=== PATIENT | female | born 1995 | race Hispanic/Latino ===

== ENCOUNTER 2018-11-08 10:42 | Emergency (ER) | payer OTHER ==
--- OUTSIDE RECORDS SUMMARY | 2018-11-08 10:46 | XMS REPORT ---
:1995 [facility] [address] [place] [address] Dr. Valderrama. [address] [place] [address] Care Team Providers Name Role Phone Unavailable Unavailable Unavailable Problems This patient has no known problems. Allergies, Adverse Reactions, Alerts This patient has no known allergies or adverse reactions. Medications This patient has no known medications.
[2018-11-08 11:23] LABS: Absolute Lymphocytes (CBC) 2.2 K/uL (0.7-4.9); Absolute Monocytes 0.6 K/uL (0.1-1.3); Absolute Neutrophil 10.2 K/uL (1.8-8.0); Basophils % 0.3 % (0-1.3); Eosinophils % 0.8 % (0-4.4); Hematocrit 36.5 % (36.0-45.0); MPV 10.3 fL (7.6-11.3); Monocytes % 4.9 % (3.3-12.3)
[2018-11-08 11:25] LABS: Urine Blood 2+ (NEG); Urine Glucose NEGATIVE (NEG); Urine Protein TRACE (NEG); Urine pH 7.5 (5.0-7.0)
[2018-11-08] MEDS ORDERED: NA CHLORIDE 0.9% 1,000 ML ONE (11:27)
[2018-11-08 12:02] LABS: BUN Blood Urea Nitrogen 7 mg/dL (7-18); Bicarbonate 23 mmol/L (21-32); Glucose Level 80 mg/dL (74-106); HCG, Quantitative 32694 mIU/mL (1-3); Potassium 3.6 mmol/L (3.5-5.1); Sodium Level 135 mmol/L (136-145)
--- NOTE | 2018-11-08 12:28 | RAD REPORT ---
EXAM DESCRIPTION: US - 1St Trimest Single 1St Fetus - 11/08/2018 11:52 am CLINICAL HISTORY: , vaginal bleeding COMPARISON: None. FINDINGS: A single variably gestation is identified. The 4 chamber heart view has a normal appearanc e. Heart rate normal. The intracranial contents and spine are grossly normal. Intra-abdominal s tructures also grossly normal. Anatomic assessment is limited at this age. Anatomy is as expected for 15 week age. measurements are as follows: BPD:2.98 Centimeters 15 weeks 3 days HC:10.73 Centimeters 15 weeks 1 day AC:9.18 Centimeters 15 weeks 2 days HL:1.85 Centimeters 15 weeks 3 days FL:1.52 Centimeters 14 weeks 3 days The estimated gestational age (EGA) is 15 weeks 1 day with an YEIMI of 05/01/2019. ratios are no rmal or within acceptable limits. The placenta is grade 0, anterior in location. Placenta is low lyin g with the inferior margin 10 mm from the internal os. No abruption or marginal hematoma. Cervical ca nal is 3.5 cm with closed internal os. The amniotic fluid volume is normal. No maternal adnexal abnormality. IMPRESSION: 1. Single gestation with an EGA of 15 weeks 1 day and an YEIMI of the 05/01/2019. Normal heart rate seen. 2. Anatomic assessment is limited at this age. Anatomy is as expected for a 15 week gestational age. 3. Grade 0, anterior placenta with low-lying placenta. No abruption or marginal hematoma. Cervical ca nal is 3.5 cm with closed internal os. 4. Amniotic fluid volume is normal.
--- NOTE | 2018-11-08 12:43 | RAD REPORT ---
EXAM DESCRIPTION: US - TRANSVAG OB CERVIX ASSESSMENT - 11/08/2018 12:36 pm CLINICAL HISTORY: CX Vaginal bleeding, early . COMPARISON: 1St Trimest Single 1St Fetus dated 11/08/2018 FINDINGS: Transvaginal empty bladder sonography was performed to assess the placental edge and cervi x. The cervix is 4 cm and closed. The edge of the placenta is approximately 1.5-2 cm from the internal o s. Please refer to recently performed pelvic ultrasound for details on the gestation.
--- NOTE | 2018-11-08 12:51 | ER ---
Nurse's Notes [facility] Name: Tegan Robbins Age: 23 yrs Sex: Female : 1995 Arrival Date: 11/08/2018 Time: 10:48 Bed 17 Private MD: Diagnosis: Threatened Presentation: 11/08 10:49 Presenting complaint: Patient states: yesterday morning I woke up and had light pink ch discharge. this morning I had light pink discharge, I called my OBGYN and they said that they cannot fix it, if I start bleeding to go to the ER. 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 Transition of care: patient was not received from another setting of care. Onset of symptoms was November 08, 2018 at 10:20. Risk Assessment: Do you want to hurt yourself or someone else? Patient reports no desire to harm self or others. Initial Sepsis Screen: Does the patient meet any 2 criteria? No. Patient's initial sepsis screen is negative. Does the patient have a suspected source of infection? No. Patient's initial sepsis screen is negative. Care prior to arrival: None. 10:49 Method Of Arrival: Ambulatory 10:49 Acuity: SAMINA 3 ch Triage Assessment: 10:51 General: Appears in no apparent distress. comfortable, Behavior is calm, cooperative, ch appropriate for age. Pain: Denies pain. : Reports vaginal bleeding that is bright red, light flow. : Reports pain pt reports pressure in stomach. 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 - Social history:: Smoking status: Patient/guardian denies using tobacco, Patient/guardian denies using alcohol, street drugs. - Ebola Screening: : Patient negative for fever greater than or equal to 101.5 degrees Fahrenheit, and additional compatible Ebola Virus Disease symptoms Patient denies exposure to infectious person Patient denies travel to an Ebola-affected area in the 21 days before illness onset No symptoms or risks identified at this time. Screenin:56 Abuse screen: Denies threats or abuse. Denies injuries from another. Nutritional sv screening: No deficits noted. Tuberculosis screening: No symptoms or risk factors identified. Fall Risk None identified. Assessment: 11:09 General: Appears in no apparent distress. comfortable, well developed, Behavior is sv calm, cooperative, appropriate for age. Pain: Denies pain. Neuro: Level of Consciousness is awake, alert, obeys commands, Oriented to person, place, time, situation, Moves all extremities. Full function Gait is steady, Speech is normal. Respiratory: Respiratory effort is even, unlabored, Respiratory pattern is regular, symmetrical. : Reports vaginal bleeding that is bright red, spotty, since yesterday. Pt reports yesterday it was light pink and today it started getting bright red. Pt denies having recent sexual intercourse. Derm: Skin is pink, warm \T\ dry. 12:13 Reassessment: Patient appears in no apparent distress at this time. No changes from sv previously documented assessment. Patient and/or family updated on plan of care and expected duration. Pain level reassessed. Patient is alert, oriented x 3, equal unlabored respirations, skin warm/dry/pink. 12:40 Reassessment: Patient appears in no apparent distress at this time. No changes from sv previously documented assessment. Patient and/or family updated on plan of care and expected duration. Pain level reassessed. Patient is alert, oriented x 3, equal unlabored respirations, skin warm/dry/pink. Pt back from US. 13:03 Reassessment: Patient appears in no apparent distress at this time. No changes from sv previously documented assessment. Patient and/or family updated on plan of care and expected duration. Pain level reassessed. Patient is alert, oriented x 3, equal unlabored respirations, skin warm/dry/pink. Vital Signs: 10:51 BP 126 / 80; Pulse 88; Resp 16; Temp 98.4; Pulse Ox 100% on R/A; Weight 89.81 kg; ch Height 5 ft. 3 in. (160.02 cm); Pain 0/10; 12:11 BP 96 / 60; Pulse 64; Resp 18; Pulse Ox 100% ; sv 13:03 BP 101 / 62; Pulse 66; Resp 16; Pulse Ox 99% ; sv 10:51 Body Mass Index 35.07 (89.81 kg, 160.02 cm) ED Course: 10:48 Patient arrived in ED. mr 10:50 Triage completed. 10:51 Arm band placed on right wrist. Patient placed in an exam room, on a stretcher. 10:55 Fortino Vivas MD is Attending Physician. [facility] 10:55 Sherry Obrien, RN is Primary Nurse. sv 10:56 Patient has correct armband on for positive identification. Placed in gown. Bed in low sv position. Call light in reach. Door closed. Head of bed elevated. 11:09 Initial lab(s) drawn, by sc, sent to lab. Inserted saline lock: 20 gauge in right sv antecubital area, using aseptic technique. Blood collected. Flushed right antecubital with 5 ml normal saline. 11:16 Urine collected: clean catch specimen, clear. mh5 11:52 1St Trimest Single 1St Fetus In Process Unspecified. EDMS 12:09 Ultrasound completed. Patient moved back from ultrasound. aa4 12:09 Note: RAD WANTS MORE US PICS - PT TO RETURN TO US. aa4 12:13 ED physician to see patient. sv 12:37 TRANSVAG OB CERVIX ASSESSMENT In Process Unspecified. EDMS 12:50 Alejandro Bridges MD is Referral Physician. [facility] 13:03 No provider procedures requiring assistance completed. IV discontinued, intact, sv bleeding controlled, No redness/swelling at site. Pressure dressing applied. Administered Medications: 11:19 Drug: NS 0.9% 1000 ml Route: IV; Rate: 1 bolus; Site: right antecubital; sv 12:15 Follow up: Response: No adverse reaction; IV Status: Completed infusion; IV Intake: sv 1000ml Intake: 12:15 IV: 1000ml; Total: 1000ml. sv Outcome: 12:50 Discharge ordered by . renetta 13:04 Discharged to home ambulatory, with family. sv 13:04 Condition: stable 13:04 Discharge instructions given to patient, Instructed on discharge instructions, follow up and referral plans. medication usage, Demonstrated understanding of instructions, follow-up care, medications, Prescriptions given X 1. 13:04 Patient left the ED. sv Signatures: Dispatcher [employer] EDMS Flori Grajeda RN RN Sherry Obrien RN RN sv Anderson, Corey, MD MD cha Jesus, Heidi mr Jordan, Zaira [facility] Gerald, Bernice [facility]
--- NOTE | 2018-11-08 12:51 | EDPHYS ---
Physician Documentation [facility] Name: Tegan Robbins Age: 23 yrs Sex: Female : 1995 Arrival Date: 11/08/2018 Time: 10:48 Bed 17 Private MD: ED Physician Fortino Vivas HPI: 11/08 11:43 This 23 yrs old Female presents to ER via Ambulatory with complaints of renetta Vaginal Bleeding, 15 wks . 11:43 The patient presents with vaginal bleeding that is light. Onset: The symptoms/episode renetta began/occurred just prior to arrival, this morning. Modifying factors: The symptoms are alleviated by nothing, the symptoms are aggravated by nothing. Severity of symptoms: At their worst the symptoms were mild, in the emergency department the symptoms are unchanged. 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 - Social history:: Smoking status: Patient/guardian denies using tobacco, Patient/guardian denies using alcohol, street drugs. - Ebola Screening: : Patient negative for fever greater than or equal to 101.5 degrees Fahrenheit, and additional compatible Ebola Virus Disease symptoms Patient denies exposure to infectious person Patient denies travel to an Ebola-affected area in the 21 days before illness onset No symptoms or risks identified at this time. ROS: 11:45 Constitutional: Negative for fever, chills, and weight loss, Eyes: Negative for injury, renetta pain, redness, and discharge, ENT: Negative for injury, pain, and discharge, Neck: Negative for injury, pain, and swelling, Cardiovascular: Negative for chest pain, palpitations, and edema, Respiratory: Negative for shortness of breath, cough, wheezing, and pleuritic chest pain, Abdomen/GI: Negative for abdominal pain, nausea, vomiting, diarrhea, and constipation, Back: Negative for injury and pain, MS/Extremity: Negative for injury and deformity, Skin: Negative for injury, rash, and discoloration, Neuro: Negative for headache, weakness, numbness, tingling, and seizure, Psych: Negative for depression, anxiety, suicide ideation, homicidal ideation, and hallucinations, Allergy/Immunology: Negative for hives, rash, and allergies, Endocrine: Negative for neck swelling, polydipsia, polyuria, polyphagia, and marked weight changes, Hematologic/Lymphatic: Negative for swollen nodes, abnormal bleeding, and unusual bruising. 11:45 : Positive for vaginal bleeding. 11:46 : Positive for renetta Exam: 11:45 Constitutional: This is a well developed, well nourished patient who is awake, alert, renetta and in no acute distress. Head/Face: Normocephalic, atraumatic. Eyes: Pupils equal round and reactive to light, extra-ocular motions intact. Lids and lashes normal. Conjunctiva and sclera are non-icteric and not injected. Cornea within normal limits. Periorbital areas with no swelling, redness, or edema. ENT: Nares patent. No nasal discharge, no septal abnormalities noted. Tympanic membranes are normal and external auditory canals are clear. Oropharynx with no redness, swelling, or masses, exudates, or evidence of obstruction, uvula midline. Mucous membranes moist. Neck: Trachea midline, no thyromegaly or masses palpated, and no cervical lymphadenopathy. Supple, full range of motion without nuchal rigidity, or vertebral point tenderness. No Meningismus. Chest/axilla: Normal chest wall appearance and motion. Nontender with no deformity. No lesions are appreciated. Cardiovascular: Regular rate and rhythm with a normal S1 and S2. No gallops, murmurs, or rubs. Normal PMI, no JVD. No pulse deficits. Respiratory: Lungs have equal breath sounds bilaterally, clear to auscultation and percussion. No rales, rhonchi or wheezes noted. No increased work of breathing, no retractions or nasal flaring. Abdomen/GI: Soft, non-tender, with normal bowel sounds. No distension or tympany. No guarding or rebound. No evidence of tenderness throughout. Back: No spinal tenderness. No costovertebral tenderness. Full range of motion. Skin: Warm, dry with normal turgor. Normal color with no rashes, no lesions, and no evidence of cellulitis. MS/ Extremity: Pulses equal, no cyanosis. Neurovascular intact. Full, normal range of motion. Neuro: Awake and alert, GCS 15, oriented to person, place, time, and situation. Cranial nerves II-XII grossly intact. Motor strength 5/5 in all extremities. Sensory grossly intact. Cerebellar exam normal. Normal gait. Vital Signs: 10:51 BP 126 / 80; Pulse 88; Resp 16; Temp 98.4; Pulse Ox 100% on R/A; Weight 89.81 kg; ch Height 5 ft. 3 in. (160.02 cm); Pain 0/10; 12:11 BP 96 / 60; Pulse 64; Resp 18; Pulse Ox 100% ; sv 13:03 BP 101 / 62; Pulse 66; Resp 16; Pulse Ox 99% ; sv 10:51 Body Mass Index 35.07 (89.81 kg, 160.02 cm) ch MDM: 10:55 Patient medically screened. [facility] 11:46 Data reviewed: vital signs, nurses notes, lab test result(s), radiologic studies, renetta ultrasound. 11/08 10:57 Order name: Abo/rh Typing; Complete Time: 12:45 sv 11/08 10:57 Order name: Basic Metabolic Panel; Complete Time: 12:45 sv 11/08 10:57 Order name: CBC with Diff; Complete Time: 12:45 sv 11/08 11:19 Order name: Urine Dipstick--Ancillary (enter results); Complete Time: 12:45 bd 11/08 11:19 Order name: Urine --Ancillary (enter results); Complete Time: 12:45 bd 11/08 10:57 Order name: IV Saline Lock; Complete Time: 12:02 sv 11/08 10:57 Order name: Labs collected and sent; Complete Time: 12:03 sv 11/08 10:57 Order name: NPO; Complete Time: 12:03 sv 11/08 11:26 Order name: HCG, Quantitative; Complete Time: 12:45 EDMS 11/08 11:52 Order name: 1St Trimest Single 1St Fetus; Complete Time: 12:45 EDMS 11/08 12:20 Order name: TRANSVAG OB CERVIX ASSESSMENT; Complete Time: 12:45 EDMS 11/08 10:57 Order name: Urine Dipstick-Ancillary (obtain specimen); Complete Time: 11:16 sv 11/08 10:57 Order name: Urine Test (obtain specimen); Complete Time: 11:16 sv Administered Medications: 11:19 Drug: NS 0.9% 1000 ml Route: IV; Rate: 1 bolus; Site: right antecubital; sv 12:15 Follow up: Response: No adverse reaction; IV Status: Completed infusion; IV Intake: sv 1000ml Disposition: 11/08/18 12:50 Discharged to Home. Impression: Threatened . - Condition is Stable. - Discharge Instructions: Threatened Miscarriage, Vaginal Bleeding During , Second Trimester, First Trimester of , Taoh-uy-Taah, First Trimester of , Threatened Miscarriage, Yakd-yy-Wuic, Pelvic Rest. - Prescriptions for Vitamin 27- 0.8 mg Oral Tablet - take 1 tablet by ORAL route once daily; 30 tablet. - Medication Reconciliation Form, Thank You Letter, Antibiotic Education, Prescription Opioid Use form. - Follow up: Private Physician; When: 2 - 3 days; Reason: Recheck today's complaints, Continuance of care, Re-evaluation by your physician. Follow up: Alejandro Bridges; When: 2 - 3 days; Reason: Recheck today's complaints, Re-evaluation by your physician. - Problem is new. - Symptoms have improved. Signatures: Dispatcher [employer] EDWI Flori Grajeda RN RN Sherry Obrien RN RN sv Anderson, Corey, MD MD cha Corrections: (The following items were deleted from the chart) 11:27 11:14 QUANTITATIVE HCG+C.LAB.BRZ ordered. EDWI EDMS 11:52 11:14 Transvaginal Ob+US.RAD.BRZ ordered. [facility] EDWI 13:04 12:50 11/08/2018 12:50 Discharged to Home. Impression: Threatened . Condition sv is Stable. Discharge Instructions: Threatened Miscarriage, Vaginal Bleeding During , Second Trimester, First Trimester of , [id number]-[id number], First Trimester of , Threatened Miscarriage, Msyr-xb-Xolo, Pelvic Rest. Prescriptions for Vitamin 27-0.8 mg Oral Tablet - take 1 tablet by ORAL route once daily; 30 tablet. and Forms are Medication Reconciliation Form, Thank You Letter, Antibiotic Education, Prescription Opioid Use. Follow up: Private Physician; When: 2 - 3 days; Reason: Recheck today's complaints, Continuance of care, Re-evaluation by your physician. Follow up: Alejandro Bridges; When: 2 - 3 days; Reason: Recheck today's complaints, Re-evaluation by your physician. Problem is new. Symptoms have improved. renetta
[2018-11-08 13:34] VITALS: TEMP 98.4
[2018-11-08 13:37] VITALS: BP 101/62; O2SAT 99
== END 2018-11-08 13:04 | disposition home or self-care (01) ==
LOC: ER 10:42
DX: O20.0 Threatened abortion (principal); Z3A.15 15 weeks gestation of pregnancy
CPT/HCPCS: 36415; 76801; 76817; 80048; 81003; 81025; 84702; 85025; 86900; 86901; 96360; 99284; J7030